=== PATIENT | male | born 1965 | race Caucasian/White ===

== ENCOUNTER 2016-09-28 05:14 | Emergency (ER) | payer SELFPAY ==
[2016-09-28 06:20] VITALS: BP 116/80
== END 2016-09-28 06:20 | disposition home or self-care (01) ==
LOC: ED 05:14
DX: S51.811A Laceration without foreign body of right forearm, initial encounter (principal); S61.411A Laceration without foreign body of right hand, initial encounter; W54.0XXA Bitten by dog, initial encounter; Y93.89 Activity, other specified; Y92.89 Other specified places as the place of occurrence of the external cause; Y99.8 Other external cause status
CPT/HCPCS: 90715; J2001